=== PATIENT | male | born 1960 | race American Indian/Alaskan Native ===

== ENCOUNTER 2017-08-11 08:26 | Day surgery (SDC) | payer OTHER ==
[~2017-08-11 08:26] MED LIST: ANCEF/STERILE WATER 2 GM/20 ML 2 GM/20 ML SYRINGE IV SCH
[2017-08-11] MEDS ORDERED: NACL BACTERIOSTATIC INFILTRATI ONE (09:01)
--- NOTE | 2017-08-11 09:41 | Anesthesia Day of Surgery ---
Anesthesia Day of Surgery - Day of Surgery Patient Examined: Yes Patient H&P Reviewed: Yes Patient is NPO: Yes
--- NOTE | 2017-08-11 09:41 | Anesthesia Consultation ---
Anesthesia Consult and Med Hx Date of service: 08/11/17 - Airway Anesthetic Teeth Evaluation: Good ROM Head & Neck: Adequate Mental/Hyoid Distance: Adequate Mallampati Class: Class II Intubation Access Assessment: Probably Good - Pulmonary Exam CTA: Yes - Cardiac Exam Cardiac Exam: RRR - Pre-Operative Health Status ASA Pre-Surgery Classification: ASA2 Proposed Anesthetic Plan: MAC - Pulmonary Hx Smoking: Yes Hx Sleep Apnea: Yes - Cardiovascular System Hx Hypertension: Yes (MEDICATION 6 YRS) - Central Nervous System Hx Psychiatric Problems: No - Gastrointestinal Hx Ulcer: Yes - Hematic Hx Anemia: No - Other Systems Hx Alcohol Use: Yes (SOCIALLY, INFREQ.) Hx Substance Use: No Hx Cancer: No
[2017-08-11] MEDS ORDERED: MORPHINE IV PRN (09:42)
[2017-08-11] MEDS ORDERED: PERCOCET 5/325 PO PRN (09:42)
[2017-08-11] MEDS ORDERED: TORADOL IV PRN (09:42)
[2017-08-11] MEDS ORDERED: HYDROGEN PEROXIDE ONE (09:48)
[2017-08-11] MEDS ORDERED: MARCAINE 0.5% 30 ML INFILTRATI ONE (09:48)
[2017-08-11] MEDS ORDERED: XYLOCAINE 1% 20 mL ONE (09:48)
[2017-08-11] MEDS ORDERED: ANCEF/STERILE WATER 2 GM/20 ML 2 GM/20 ML SYRINGE IV SCH (10:00)
[2017-08-11] MEDS ORDERED: SUBLIMAZE ONE (10:00)
[2017-08-11] MEDS ORDERED: VERSED IV NR (10:00)
[2017-08-11] MEDS ORDERED: DIPRIVAN 10 MG/ML IV ONE ×2 (10:00→10:58)
[2017-08-11] MEDS ORDERED: LACTATED RINGERS 1,000 ML IV SCH (10:00)
[2017-08-11] MEDS ORDERED: MARCAINE 0.5% INFILTRATI ONE ×2 (10:22)
[2017-08-11] MEDS ORDERED: XYLOCAINE 2%/EPI 1:100,000 INFILTRATI ONE ×2 (10:22)
[2017-08-11] MEDS ORDERED: NACL 0.9% IR ONE (10:22)
[2017-08-11] MEDS ORDERED: XYLOCAINE MPF 2% ONE (10:51)
--- NOTE | 2017-08-11 11:07 | Discharge Summary ---
Short Stay Discharge Plan Activity: other (december d/c when awake and stable. cl liq diet, advance to reg as yvonne. keep dressings dry until seen in office) Weight Bearing Status: Full Weight Bearing Diet: other Wound: keep clean and dry Additional Instructions: aleve I po q 6-8 hrs for breakthrough pain Follow up with: MERLE WINTERS MD [Staff Physician] - 08/14/17
--- NOTE | 2017-08-11 11:25 | Operative Report ---
PREOPERATIVE DIAGNOSIS: Rule out infected sebaceous cyst of the scalp. POSTOPERATIVE DIAGNOSIS: Rule out infected sebaceous cyst of the scalp, pending final pathology. PROCEDURE: Excision and packing of aforementioned infected sebaceous cyst. SURGEON: Odell Penny MD ANESTHESIA: 0.5% Marcaine with epinephrine and IV sedation. COMPLICATIONS: No complications. DESCRIPTION OF PROCEDURE: The patient was taken to the operating room, prepped and draped in the usual sterile fashion. The visible draining nodule was outlined with a marking pencil. A 0.5% Marcaine with epinephrine was infiltrated over the area to be incised. A 15 blade was used to make an elliptical incision over the dome of the nodule. Needle tip electrocautery as well as sharp and blunt dissection were used to remove the nodule in its entirety. Grossly, this appears to be an infected sebaceous cyst. Sebum was noted during the dissection. The area was then irrigated copiously and dried. Hemostasis obtained with needle tip electrocautery. Once again, the area was irrigated and dried. Checked for hemostasis once again and noted to be dry. The area of the excised area was then packed with quarter inch iodoform gauze. A 2 x 2, and Tegaderm were applied. Wang wrap for pressure dressing will also be applied. The patient tolerated the procedure well and left OR in stable condition. JOB# [id number] LAURA/JOSE ALEJANDRO
--- NOTE | 2017-08-11 11:45 | Post Anesthesia Evaluation ---
- Post Anesthesia Evaluation Patient Participated: Yes Airway Patent: Yes Stable Respiratory Function: Yes Nausea/Vomiting: No Temp > 96.8F: Yes Pain Manageable: Yes Adequeate Hydration: Yes Anesthesia Complications: No Block Receding Appropriately: Not Applicable Patient on Ventilator: No
[2017-08-11 13:10] VITALS: BP 153/81
== END 2017-08-11 13:05 | disposition home or self-care (01) ==
LOC: OR 08:26
PROVIDERS: ATTEND Surgery
DX: L72.0 Epidermal cyst (principal); I10 Essential (primary) hypertension; G47.30 Sleep apnea, unspecified; F17.200 Nicotine dependence, unspecified, uncomplicated; Z79.899 Other long term (current) drug therapy
CPT/HCPCS: 11421; 36415; 84132; 88305; J0690; J2250; J2704; J3010; J7120